=== PATIENT | female | born 1985 | race Caucasian/White ===

== ENCOUNTER 2016-10-24 22:25 | Inpatient (IN) | payer SELFPAY ==
[~2016-10-24] VITALS: Ht 165.1 cm; Wt 99.9 kg
[2016-10-24 23:26] LABS: MEAN CORPUSCULAR HEMOGLOBIN 29.4 pg (27.0-33.0); MEAN CORPUSCULAR HGB CONC 32.7 g/dl (32.0-36.5); MEAN CORPUSCULAR VOLUME 90.1 fl (80.0-96.0); RED CELL DISTRIBUTION WIDTH 13.7 % (11.5-14.5); WHITE BLOOD COUNT 6.1 K/mm3 (4.0-10.0)
[2016-10-24 23:38] LABS: CONTROL LINE HCG INT CTR LINE PRESENT
[2016-10-24 23:53] LABS: ALBUMIN 3.8 GM/DL (3.2-5.2); ALBUMIN/GLOBULIN RATIO 1.23 (1.00-1.93); ALKALINE PHOSPHATASE 67 U/L (45-117); ALT/SGPT 24 U/L (12-78); ANION GAP 10 MEQ/L (8-16); AST/SGOT 11 U/L (15-37); BILIRUBIN,DIRECT 0.1 MG/DL (0.0-0.2); BILIRUBIN,TOTAL 0.3 MG/DL (0.2-1.0); BLOOD UREA NITROGEN 14 MG/DL (7-18); CALCIUM LEVEL 8.5 MG/DL (8.5-10.1); CARBON DIOXIDE LEVEL 28 MEQ/L (21-32); CHLORIDE LEVEL 106 MEQ/L (98-107); GLOMERULAR FILTRATION RATE > 60.0 (>60); GLUCOSE, FASTING 100 MG/DL (70-105); POTASSIUM SERUM 3.8 MEQ/L (3.5-5.1); SODIUM LEVEL 144 MEQ/L (136-145); TOTAL PROTEIN 6.9 GM/DL (6.4-8.2)
[2016-10-24 23:58] LABS: AMPHETAMINES LEVEL URINE NEGATIVE (NEGATIVE); BENZODIAZEPINES URINE NEGATIVE (NEGATIVE); COCAINE METABOLITE URINE NEGATIVE (NEGATIVE); CONTROL LINE INT CTR LINE PRESENT; METHADONE URINE NEGATIVE (NEGATIVE); OPIATES URINE POSITIVE (NEGATIVE); TRICYCLIC ANTIDEPRESS URINE NEGATIVE (NEGATIVE)
[2016-10-25] MEDS ORDERED: MAALOX 30 ML SUSP *UDC PO PRN (00:45)
[2016-10-25] MEDS ORDERED: traZODone 100 MG TAB PO PRN (00:45)
[2016-10-25] MEDS ORDERED: MOM 30ML SUSPENSION UDC PO PRN (00:45)
[2016-10-25] MEDS ORDERED: CLON1TAB PO (01:24)
[2016-10-25] MEDS ORDERED: RITA10TA PO (01:24)
[2016-10-25] MEDS ORDERED: ADV100INH INH (01:24)
[2016-10-25] MEDS ORDERED: OXYC-517 PO (01:24)
[2016-10-25] MEDS ORDERED: ALBU17IN INH (01:24)
[2016-10-25] MEDS ORDERED: MORP30TASA PO (01:24)
[2016-10-25] MEDS ORDERED: ZYRT10CA PO (01:24)
[2016-10-25] MEDS ORDERED: ZYRT10TA2 PO (01:24)
[2016-10-25] MEDS ORDERED: LAMI1TAB7 PO (01:24)
[2016-10-25] MEDS ORDERED: CETIRIZINE (ZyrTEC) 10 MG TAB PO PRN (01:45)
[2016-10-25] MEDS ORDERED: MORPHINE 30 MG SA TAB PO PRN (01:45)
[2016-10-25] MEDS ORDERED: ALBUTEROL 90 MCG/ACT 8GM HFA INHALER INH PRN (01:45)
[2016-10-25] MEDS ORDERED: clonazePAM 0.5 MG TAB As Ordered ONE (01:51)
--- NOTE | 2016-10-25 02:12 | EDDOCDS ---
Physician Documentation [facility] Name: David Gilliam Age: 31 yrs Sex: Female : 1985 Arrival Date: 10/24/2016 Time: 22:25 Bed RUST3 Private MD: NO PRIMARY PHYSICIAN, . Disposition: 10/25/16 01:46 Hospitalization ordered by Ever Ayers for Inpatient Admission. Preliminary diagnosis is Major depressive disorder, recurrent severe without psychotic features. - Bed requested for Admit. - Status is Inpatient Admission. ka4 - Condition is Stable. - Problem is an ongoing problem. - Symptoms are unchanged. Historical: - Allergies: Phenergan (Dystonic reaction); - Home Meds: 1. Lamictal 100 mg Oral tab once daily 2. clonazepam 1 mg Oral tab 3. Ritalin 10 mg Oral tab 4. oxycodone 5 mg Oral tab 3times aday 5. morphine 30 mg Oral TbER 6. Zyrtec Oral prn 7. Albuterol Inhl as needed 8. Advair Diskus 100-50 mcg/dose Inhl dsdv prn - PMHx: Depression; Seasonal Allergies; hip pain chronic; Anxiety; - PSHx: Cholecystectomy; lap band procedure; ; - Social history: Smoking status: Patient states was never smoker of tobacco. No barriers to communication noted, The patient speaks fluent Kinyarwanda, Speaks appropriately for age. - Family history: Not pertinent. - : The pt / caregiver states he / she is not on anticoagulants. Home medication list is obtained from the patient. - Exposure Risk Screening:: None identified. 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 5 in. (165.10 cm) (R); Pain 5/10; 10/25 01:47 BP 127 / 69; Pulse 71; Resp 18; Temp 97.2(T); Pulse Ox 97% on R/A; mgs 10/24 22:29 Body Mass Index 36.61 (99.79 kg, 165.10 cm) gr2 MDM: 10/24 22:57 Consult PFS/PSA/Sheet Metal Fabricator ordered. oct 22:57 Consult PFS/PSA/Sheet Metal Fabricator: Patient's case requires discussion with on-call soren Psychiatrist ordered. 22:57 PSA/PFS to call Nursing Nickel Operator, to enter patient data on [place] Safe Act if patient soren involuntarily admitted or transferred for SI or HI ordered. 22:57 Confirm accurate psychiatric medication list and times of last dosage ordered. oct 29:57 Detain Pt Until Medically/PFS Cleared ordered. oct 29:58 Acetaminophen Level Ordered. EDMS 22:58 Basic Metabolic Profile Ordered. EDMS 22:58 Complete Blood Count Ordered. EDMS 22:58 Drug Eval Toxicology ED Only Ordered. EDMS 22:58 Ethyl Alcohol (ethanol) Ordered. EDMS 22:58 HCG,Serum Qualitative Ordered. EDMS 22:58 Liver Profile Ordered. EDMS 22:58 Salicylate Level Ordered. EDMS 22:58 Thyroid Stimulating Hormone Ordered. EDMS 10/25 00:38 Admit to HU: ordered. EDMS 00:39 REGULAR DIET ordered. EDMS 01:12 [facility] Payment Agreement was scanned into [employer] and attached to record. hs2 01:40 Consult PFS/PSA/Sheet Metal Fabricator complete. jl 01:40 Consult PFS/PSA/Sheet Metal Fabricator: Patient's case requires discussion with on-call jl Psychiatrist complete. 01:40 PSA/PFS to call Nursing Nickel Operator, to enter patient data [place] Safe [place] if patient jl involuntarily admitted or transferred for SI or HI complete. 01:45 Acetaminophen Level Reviewed. mm11 01:45 Drug Eval Toxicology ED Only Reviewed. mm11 01:45 Liver Profile Reviewed. mm11 01:45 Salicylate Level Reviewed. mm11 01:45 Basic Metabolic Profile Reviewed. mm11 01:45 Complete Blood Count Reviewed. mm11 01:45 Ethyl Alcohol (ethanol) Reviewed. mm11 01:45 HCG,Serum Qualitative Reviewed. mm11 01:45 Thyroid Stimulating Hormone Reviewed. mm11 01:46 clonazePAM 1 mg PO once ordered. mm11 01:48 [facility] Legal paperwork was scanned into [employer] and attached to record. jl 01:52 Financial registration complete. hs2 Administered Medications: 01:55 Drug: clonazePAM 1 mg [clonazepam 0.5 mg tablet (2 tabs)] Route: PO; ka4 Signatures: Dispatcher [employer] EDMS Vivi Graham RN RN jan Zecher, Calvin, RN RN cz Yeyo Yoon, PSA PSA Igor Kearns, DO DO mm11 Crissy Hutson,TUBE MACHINE OPERATOR TUBE MACHINE OPERATOR ka4 Marlen Tirado, Reg Reg hs2 The chart was reviewed and I authenticate all verbal orders and agree with the evaluation and treatment provided.Attachments: 01:12 [facility] Payment Agreement hs2 MTDD
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
[2016-10-25 02:56] VITALS: BP 137/85
[2016-10-25] MEDS: lamoTRIgine 100MG TAB PO SCH ×2 (03:10→21:37)
[2016-10-25] MEDS: clonazePAM 1 MG TAB PO PRN ×2 (03:12→09:22)
[2016-10-25] MEDS: METHYLPHENIDATE 5 MG TAB PO SCH (08:45)
[2016-10-25] MEDS: ADVAIR DISKUS 100/50 INH PWD INH SCH ×2 (08:45→21:37)
[2016-10-25] MEDS: oxyCODONE 5MG TAB PO PRN (10:37)
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
--- NOTE | 2016-10-25 11:43 | HPEPDOC ---
Medical History and Physical Date of Admission Oct 25, 2016 at 02:15 History and Physical PCP: Dr Art Eden [facility] Luis A Womack MD ATTENDING: Dr. José Luis Bill HPI: 31yoF admitted to [facility] for MDD, being medically examined today. Patient states she has chronic bilateral hip pain for which she follows with pain management in [facility]. She is awaiting approval for an MRI of her hips. She has had x-rays of her hips in the past. She states she has had a total of 8 injections for her pain which has been ineffective. She has tried physical therapy in the past. She has been treated for chronic bursitis in her hips but she still has chronic pain. Denies any fevers, chills, weakness, fatigue, BLOCK, CP, SOB, cough, palpitations, abdominal pain, N/V/D or changes in bowel or bladder habits. 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 Well-nourished, well developed. No acute distress. Alert and oriented x 3. Pleasant, interactive. HEENT: Normocephalic, atraumatic. Pupils are equal, round, and reactive to light. Extraocular movements are intact. No nystagmus appreciated. Sclera are nonicteric. Conjunctiva without injection. Nose midline. Nasal turbinates without bogginess. EACs both patent BL. TMs both visualized and maria with good cone of light, no bulging or erythema. No facial asymmetry. Moist mucous membranes. Dentition fair. Pharynx pink and moist, no cobblestoning. Neck supple , trachea midline. No lymphadenopathy or thyromegaly appreciated. CHEST: Regular rate and rhythm, +S1, +S2 LUNGS: Clear to auscultation bilaterally. No wheezes, rales, or rhonchi. Breathing appears symmetric and easy. Patient is speaking in full sentences. No accessory muscle use. ABD: Round, soft, non-tender, non-distended. +Bowel sounds throughout. No rebound or guarding. No costovertebral angle tenderness. EXT: Pulses 2+ bilaterally dorsalis pedis and radial. No lower extremity edema appreciated. SKIN: [place], dry, warm. Capillary refill <2sec. rash consistent with eczema noted on the elbows and knees bilaterally. NEURO: Alert and oriented x 3. Cranial nerves III-XII are intact. No focal deficits appreciated. EKG: Pending A&P: 31yoF admitted to [facility] for MDD 1. Psych. Plan per Psychiatry. Obtain baseline EKG to assure the safety of psychiatric medications as they can prolong the QT interval. 2. Eczema. Pt states she typically uses Fluticasone cream 0.05%. Will order and may apply to elbows and knees sparingly BID x 7 days. 3. Chronic bilateral hip pain. Request copy of previous imaging of the hips. Request previous notes from her pain management physician. Request opinion from pain management. Patient is continued on her outpatient regimen at this time of morphine ER 30 mg at bedtime as needed and oxycodone 5 mg 3 times a day as needed. I stop is accessed reference #[id number] indicating fill date of 10/09/16 for morphine ER 56 tablets of 15 mg. Fill date of 10/09/16 of oxycodone 5 mg tablets #84 tablets. 4. Allergic rhinitis. Continue Zyrtec daily as needed. 5. Asthma. Continue albuterol 2 puffs every 4 hours as needed. Continue Advair 100/50 one inhalation twice a day. 6. Follow up with PCP on discharge. 7. Staff member was present throughout exam, JESSICA Rose Vital Signs Vital Signs Label Value Date Time Patient Temperature 98.6 degrees F 10/25/16 0256 Temperature Source Tympanic 10/25/16 0256 Pulse 80 10/25/16 0256 Respiratory Rate 16 bpm 10/25/16 0256 Blood Pressure Assessment 137/85 (102) 10/25/16 0256 Laboratory Data Labs 24H Laboratory Tests 2 10/24/16 23:07: Acetaminophen Level < 2.0L, Aspartate Amino Transf (AST/SGOT) 11L, Alanine Aminotransferase (ALT/SGPT) 24, Alkaline Phosphatase 67, Total Bilirubin 0.3, Direct Bilirubin 0.1, Albumin 3.8, Albumin/Globulin Ratio 1.23, Anion Gap 10, Calcium Level 8.5, Ethyl Alcohol Level < 0.003, Glomerular Filtration Rate > 60.0, Human Chorionic Gonadotropin, Qual NEGATIVE, Salicylates Level < 1.7L, Thyroid Stimulating Hormone (TSH) 2.530, Total Protein 6.9 10/24/16 23:20: Urine Amphetamine Level NEGATIVE, Urine Benzodiazepines Screen NEGATIVE, Urine Cannabinoids NEGATIVE, Urine Cocaine Metabolite NEGATIVE, Urine Opiates Screen POSITIVEH, Urine Barbiturates, Qualitative NEGATIVE, Urine Methadone Screen NEGATIVE, Urine Tricyclic Antidepressants NEGATIVE CBC/BMP Laboratory Tests 10/24/16 23:07 Red Blood Count 4.44, Mean Corpuscular Volume 90.1, Mean Corpuscular Hemoglobin 29.4, Mean Corpuscular Hemoglobin Concent 32.7, Red Cell Distribution Width 13.7 Home Medications Scheduled Lamotrigine (Lamictal) 100 Mg Tab 100 MG PO QHS Methylphenidate HCl (Ritalin) 10 Mg Tab 10 MG PO DAILY Scheduled PRN Albuterol Sulfate (Ventolin Hfa) 200 Puff/8 Gm Aers 2 PUFF INH Q4H PRN PRN SHORTNESS OF BREATH Cetirizine HCl (Zyrtec Allergy) 10 Mg Cap 10 MG PO DAILY PRN PRN ALLERGIES Clonazepam (Clonazepam) 1 Mg Tab 1 MG PO BID PRN PRN ANXIETY Morphine Sulfate (Morphine Sulfate ER) 30 Mg Tabcr 30 MG PO QHS PRN PRN PAIN Oxycodone HCl (Oxycodone HCl) 5 Mg Tab 5 MG PO TID PRN PRN PAIN Salmeterol/Fluticasone (Advair Diskus 100-50 Mcg/Dose) 28 Puff/Inhaler Aerp 1 PUFF INH BID PRN PRN EXACERBATIONS Allergies Coded Allergies: Promethazine (Unverified Adverse Reaction, Intermediate, DYSTONIC REACTION , 10/25/16) Tamika Eden Oct 25, 2016 11:43
[2016-10-25] MEDS: FLUTICASONE 0.05% CREAM 30GM (CUTIVATE) TOP SCH ×2 (13:00→21:38)
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
[2016-10-25] MEDS ORDERED: traZODone 50 MG TAB PO PRN (17:15)
[2016-10-25] MEDS ORDERED: ONDANSETRON 4 MG TAB (S0181) PO SCH (17:45)
[2016-10-25 17:47] VITALS: BP 129/75
[2016-10-25] MEDS: ONDANSETRON 4 MG TAB (S0181) PO PRN (17:59)
[2016-10-25 18:00] VITALS: BP 113/72
[2016-10-25] MEDS: ACETAMINOPHEN TAB 650MG DOSE (2X325MG) PO PRN (21:39)
[2016-10-26 06:41] VITALS: BP 137/71
[2016-10-26] MEDS: ONDANSETRON 4 MG TAB (S0181) PO PRN ×2 (07:56→15:37)
[2016-10-26] MEDS: oxyCODONE 5MG TAB PO PRN ×2 (07:57→14:35)
--- NOTE | 2016-10-26 08:37 | ECGEPIP ---
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
[2016-10-26] MEDS: FLUTICASONE 0.05% CREAM 30GM (CUTIVATE) TOP SCH ×2 (10:33→21:00)
[2016-10-26] MEDS: METHYLPHENIDATE 5 MG TAB PO SCH (10:35)
[2016-10-26] MEDS: ADVAIR DISKUS 100/50 INH PWD INH SCH ×2 (10:35→21:00)
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
[2016-10-26 18:00] VITALS: BP 112/64
[2016-10-26] MEDS: lamoTRIgine 100MG TAB PO SCH (22:13)
--- NOTE | 2016-10-27 03:12 | EDDOCDS ---
Physician Documentation [employer] Name: David Gilliam Age: 31 yrs Sex: Female : 1985 Arrival Date: 10/24/2016 Time: 22:25 Bed [facility] Private MD: NO PRIMARY PHYSICIAN, . Disposition: 10/25/16 01:46 Hospitalization ordered by Ever Ayers for Inpatient Admission. Preliminary diagnosis is Major depressive disorder, recurrent severe without psychotic features. - Bed requested for Admit. - Status is Inpatient Admission. ka4 - Condition is Stable. - Problem is an ongoing problem. - Symptoms are unchanged. Historical: - Allergies: Phenergan (Dystonic reaction); - Home Meds: 1. Lamictal 100 mg Oral tab once daily 2. clonazepam 1 mg Oral tab 3. Ritalin 10 mg Oral tab 4. oxycodone 5 mg Oral tab 3times aday 5. morphine 30 mg Oral TbER 6. Zyrtec Oral prn 7. Albuterol Inhl as needed 8. Advair Diskus 100-50 mcg/dose Inhl dsdv prn - PMHx: Depression; Seasonal Allergies; hip pain chronic; Anxiety; - PSHx: Cholecystectomy; lap band procedure; ; - Social history: Smoking status: Patient states was never smoker of tobacco. No barriers to communication noted, The patient speaks fluent Khmer, Speaks appropriately for age. - Family history: Not pertinent. - : The pt / caregiver states he / she is not on anticoagulants. Home medication list is obtained from the patient. - Exposure Risk Screening:: None identified. HYDRAULIC SPINNER: 10/24 22:43 LMP 10/07/2016 cz Vital Signs: 22:29 BP 113 / 70; Pulse 97; Resp 18 S; Temp 98.1(O); Pulse Ox 97% on R/A; Weight 99.79 kg / gr2 220 lbs (R); Height 5 ft. 5 in. (165.10 cm) (R); Pain 5/10; 10/25 01:47 BP 127 / 69; Pulse 71; Resp 18; Temp 97.2(T); Pulse Ox 97% on R/A; mgs 10/24 22:29 Body Mass Index 36.61 (99.79 kg, 165.10 cm) gr2 MDM: 10/24 22:57 Consult PFS/PSA/Anesthesia Technician ordered. oct 29:57 Consult PFS/PSA/Anesthesia Technician: Patient's case requires discussion with on-call soren Psychiatrist ordered. 22:57 PSA/PFS to call Nursing Shrimp Packer, to enter patient data on [place] Safe Act if patient soren involuntarily admitted or transferred for SI or HI ordered. 22:57 Confirm accurate psychiatric medication list and times of last dosage ordered. oct 29:57 Detain Pt Until Medically/PFS Cleared ordered. oct 29:58 Acetaminophen Level Ordered. EDMS 22:58 Basic Metabolic Profile Ordered. EDMS 22:58 Complete Blood Count Ordered. EDMS 22:58 Drug Eval Toxicology ED Only Ordered. EDMS 22:58 Ethyl Alcohol (ethanol) Ordered. EDMS 22:58 HCG,Serum Qualitative Ordered. EDMS 22:58 Liver Profile Ordered. EDMS 22:58 Salicylate Level Ordered. EDMS 22:58 Thyroid Stimulating Hormone Ordered. EDMS 10/25 00:38 Admit to HU: ordered. EDMS 00:39 REGULAR DIET ordered. EDMS 01:12 [facility] Payment Agreement was scanned into [employer] and attached to record. hs2 01:40 Consult PFS/PSA/Anesthesia Technician complete. jl 01:40 Consult PFS/PSA/Anesthesia Technician: Patient's case requires discussion with on-call jl Psychiatrist complete. 01:40 PSA/PFS to call Nursing Shrimp Packer, to enter patient data [place] Safe [place] if patient jl involuntarily admitted or transferred for SI or HI complete. 01:45 Acetaminophen Level Reviewed. mm11 01:45 Drug Eval Toxicology ED Only Reviewed. mm11 01:45 Liver Profile Reviewed. mm11 01:45 Salicylate Level Reviewed. mm11 01:45 Basic Metabolic Profile Reviewed. mm11 01:45 Complete Blood Count Reviewed. mm11 01:45 Ethyl Alcohol (ethanol) Reviewed. mm11 01:45 HCG,Serum Qualitative Reviewed. mm11 01:45 Thyroid Stimulating Hormone Reviewed. mm11 01:46 clonazePAM 1 mg PO once ordered. mm11 01:48 MHE Legal paperwork was scanned into [employer] and attached to record. jl 01:52 Financial registration complete. hs2 15:02 T-Sheet-- Draft Copy was scanned into [employer] and attached to record. gb Administered Medications: 01:55 Drug: clonazePAM 1 mg [clonazepam 0.5 mg tablet (2 tabs)] Route: PO; ka4 Signatures: Dispatcher [employer] Vivi Deng RN RN jan Zecher, Calvin, RN RN Yeyo Pina PSA PSA jl Barnhardt, Gloria, Reg Reg gb Igor Rosado, DO DO mm11 Crissy Hutson,TOUR ACTOR TOUR ACTOR ka4 Marlen Tirado, Reg Reg hs2 The chart was reviewed and I authenticate all verbal orders and agree with the evaluation and treatment provided.Attachments: 01:12 [facility] Payment Agreement hs2 15:02 T-Sheet-- Draft Copy gb Chart Complete MTDD
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
--- NOTE | 2016-10-27 03:12 | EDDOCDS ---
Physician Documentation [facility] Name: David Gilliam Age: 31 yrs Sex: Female : 1985 Arrival Date: 10/24/2016 Time: 22:25 Bed [facility] Private MD: NO PRIMARY PHYSICIAN, . Disposition: 10/25/16 01:46 Hospitalization ordered by Ever Ayers for Inpatient Admission. Preliminary diagnosis is Major depressive disorder, recurrent severe without psychotic features. - Bed requested for Admit. - Status is Inpatient Admission. ka4 - Condition is Stable. - Problem is an ongoing problem. - Symptoms are unchanged. Historical: - Allergies: Phenergan (Dystonic reaction); - Home Meds: 1. Lamictal 100 mg Oral tab once daily 2. clonazepam 1 mg Oral tab 3. Ritalin 10 mg Oral tab 4. oxycodone 5 mg Oral tab 3times aday 5. morphine 30 mg Oral TbER 6. Zyrtec Oral prn 7. Albuterol Inhl as needed 8. Advair Diskus 100-50 mcg/dose Inhl dsdv prn - PMHx: Depression; Seasonal Allergies; hip pain chronic; Anxiety; - PSHx: Cholecystectomy; lap band procedure; ; - Social history: Smoking status: Patient states was never smoker of tobacco. No barriers to communication noted, The patient speaks fluent Azeri, Speaks appropriately for age. - Family history: Not pertinent. - : The pt / caregiver states he / she is not on anticoagulants. Home medication list is obtained from the patient. - Exposure Risk Screening:: None identified. 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 5 in. (165.10 cm) (R); Pain 5/10; 10/25 01:47 BP 127 / 69; Pulse 71; Resp 18; Temp 97.2(T); Pulse Ox 97% on R/A; mgs 10/24 22:29 Body Mass Index 36.61 (99.79 kg, 165.10 cm) gr2 MDM: 10/24 22:57 Consult PFS/PSA/Health Information Specialist ordered. oct 29:57 Consult PFS/PSA/Health Information Specialist: Patient's case requires discussion with on-call soren Psychiatrist ordered. 22:57 PSA/PFS to call Nursing Senior Telecommunications Technician, to enter patient data on [place] Safe Act if patient soren involuntarily admitted or transferred for SI or HI ordered. 22:57 Confirm accurate psychiatric medication list and times of last dosage ordered. oct 29:57 Detain Pt Until Medically/PFS Cleared ordered. oct 29:58 Acetaminophen Level Ordered. EDMS 22:58 Basic Metabolic Profile Ordered. EDMS 22:58 Complete Blood Count Ordered. EDMS 22:58 Drug Eval Toxicology ED Only Ordered. EDMS 22:58 Ethyl Alcohol (ethanol) Ordered. EDMS 22:58 HCG,Serum Qualitative Ordered. EDMS 22:58 Liver Profile Ordered. EDMS 22:58 Salicylate Level Ordered. EDMS 22:58 Thyroid Stimulating Hormone Ordered. EDMS 10/25 00:38 Admit to HU: ordered. EDMS 00:39 REGULAR DIET ordered. EDMS 01:12 [facility] Payment Agreement was scanned into [email or web address] and attached to record. hs2 01:40 Consult PFS/PSA/Health Information Specialist complete. jl 01:40 Consult PFS/PSA/Health Information Specialist: Patient's case requires discussion with on-call jl Psychiatrist complete. 01:40 PSA/PFS to call Nursing Senior Telecommunications Technician, to enter patient data on [place] Safe Act if patient jl involuntarily admitted or transferred for SI or HI complete. 01:45 Acetaminophen Level Reviewed. mm11 01:45 Drug Eval Toxicology ED Only Reviewed. mm11 01:45 Liver Profile Reviewed. mm11 01:45 Salicylate Level Reviewed. mm11 01:45 Basic Metabolic Profile Reviewed. mm11 01:45 Complete Blood Count Reviewed. mm11 01:45 Ethyl Alcohol (ethanol) Reviewed. mm11 01:45 HCG,Serum Qualitative Reviewed. mm11 01:45 Thyroid Stimulating Hormone Reviewed. mm11 01:46 clonazePAM 1 mg PO once ordered. mm11 01:48 [facility] Legal paperwork was scanned into [email or web address] and attached to record. jl 01:52 Financial registration complete. hs2 15:02 T-Sheet-- Draft Copy was scanned into [email or web address] and attached to record. gb Administered Medications: 01:55 Drug: clonazePAM 1 mg [clonazepam 0.5 mg tablet (2 tabs)] Route: PO; ka4 Signatures: Dispatcher [employer] Vivi Deng RN RN jan Zecher, Calvin, RN RN Yeyo Pina PSA PSA jl Barnhardt, Gloria, Reg Reg gb Igor Rosado, DO DO mm11 Crissy Hutson,GUNSMITH APPRENTICE GUNSMITH APPRENTICE ka4 Marlen Tirado, Reg Reg hs2 The chart was reviewed and I authenticate all verbal orders and agree with the evaluation and treatment provided.Attachments: 01:12 [facility] Payment Agreement hs2 15:02 T-Sheet-- Draft Copy gb Chart Complete MTDD
[2016-10-27] MEDS: ONDANSETRON 4 MG TAB (S0181) PO PRN (03:20)
[2016-10-27] MEDS: ACETAMINOPHEN TAB 650MG DOSE (2X325MG) PO PRN (03:21)
[2016-10-27 06:49] VITALS: BP 122/56
[2016-10-27] MEDS: clonazePAM 1 MG TAB PO PRN (07:45)
[2016-10-27] MEDS: ADVAIR DISKUS 100/50 INH PWD INH SCH (09:00)
[2016-10-27] MEDS: METHYLPHENIDATE 5 MG TAB PO SCH (09:17)
[2016-10-27] MEDS: FLUTICASONE 0.05% CREAM 30GM (CUTIVATE) TOP SCH (09:18)
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
[2016-10-27] MEDS ORDERED: TRAZ50TA4 PO (09:45)
[2016-10-27] MEDS ORDERED: CUTI0.05 TOP (09:45)
== END 2016-10-27 15:51 | disposition home or self-care (01) | DRG 751 ==
LOC: M ED 22:25 → M PSY 10-25 02:14
PROVIDERS: ADMIT Psychiatry & Neurology Psychiatry; ATTEND Psychiatry & Neurology Psychiatry
DX: F33.9 Major depressive disorder, recurrent, unspecified (principal); J45.909 Unspecified asthma, uncomplicated; L30.9 Dermatitis, unspecified; M70.62 Trochanteric bursitis, left hip; M70.61 Trochanteric bursitis, right hip; Z88.8 Allergy status to other drugs, medicaments and biological substances; Z79.899 Other long term (current) drug therapy; Z90.49 Acquired absence of other specified parts of digestive tract; Z98.84 Bariatric surgery status; Z98.51 Tubal ligation status; Y93.9 Activity, unspecified